=== PATIENT | male | born 1985 | race Caucasian/White ===

== ENCOUNTER 2017-06-01 09:32 | Emergency (ER) | payer SELFPAY ==
[~2017-06-01] VITALS: Ht 170.2 cm; Wt 46.7 kg
--- NOTE | 2017-06-01 11:15 | ED Upper Extremity ---
General Chief Complaint: General Problems/Pain Stated Complaint: LEFT FINGERS NUMB AFTER MOWING Nursing Triage Note: PT REPORTS L HAND NUMBNESS AFTER MOWING YESTERDAY. Nursing Sepsis Screen: No Definite Risk Source: patient Exam Limitations: no limitations History of Present Illness Time seen by provider: 11:12 Initial Comments To ER with reports of numbness and tingling. He states that yesterday his entire left side went numb while he was mowing the yard. This lasted for 5 or 10 minutes before completely resolving except for the left hand. Today the left hand is still tingly and numb. Onset: yesterday Severity: moderate Pain/Injury Location: left hand, left thumb, left 2nd finger, left 3rd finger, left 4th finger Method of Injury: unknown Constitutional: see HPI EENTM: see HPI Respiratory: no symptoms reported Cardiovascular: no symptoms reported Genitourinary: no symptoms reported Musculoskeletal: see HPI Skin: no symptoms reported Psychiatric/Neurological: No Symptoms Reported Past Buhbjco-Npplwm-Lszddd Hx Patient Social History Alcohol Use: Denies Use Recreational Drug Use: No Smoking Status: Current Everyday Smoker 2nd Hand Smoke Exposure: Yes Recent Foreign Travel: No Contact w/Someone Who Travel: No Recent Infectious Disease Expo: No Recent Hopitalizations: No Seasonal Allergies Seasonal Allergies: No Physical Exam Vital Signs Vital Sign - Last 12Hours 06/01/17 09:59 Temp 97.2 Pulse 73 Resp 16 B/P (MAP) 111/83 Pulse Ox 98 O2 Delivery Room Air Capillary Refill : Less Than 3 Seconds General Appearance: WD/WN, no apparent distress HEENT: PERRL/EOMI, normal ENT inspection Neck: non-tender, full range of motion Respiratory: no respiratory distress, no accessory muscle use Gastrointestinal: normal bowel sounds, non tender, soft Shoulder: normal inspection, non-tender Elbow/Forearm: normal inspection, non-tender Wrist: Yes normal inspection, Yes non-tender Hand: Left (he reports a tingly sensation to the left hand that affects the thumb pointer middle finger, the radial side of the ring finger but does not affect the ulnar side of the ring finger or the pinky finger. This begins at the wrist and extends distally.) Neurologic/Psychiatric: alert, normal mood/affect, oriented x 3 Skin: normal color, warm/dry Progress/Results/Core Measures Results/Orders Vital Signs/I&O Vital Sign - Last 12Hours 06/01/17 09:59 Temp 97.2 Pulse 73 Resp 16 B/P (MAP) 111/83 Pulse Ox 98 O2 Delivery Room Air Blood Pressure Mean: 92 Departure Impression Impression: Primary Impression: Carpal tunnel syndrome of left wrist Disposition: HOME, SELF-CARE Condition: Stable Departure-Patient Inst. Decision time for Depature: 11:14 Referrals: SALVADOR HAAS MD, MICHAEL R CFNP (PCP) Primary Care Physician ZEESHAN HYDE MD, ROBERT F DO ZAFUTA, MICHAEL P MD Patient Instructions: Carpal Tunnel Exercises, Carpal Tunnel Syndrome Add. Discharge Instructions: 1. Wear the splint to your hand to keep the wrist straight for the next 1-2 weeks. If the tingling and numbness sensation does not improve or gets worse follow-up with one of the orthopedic surgeons listed All discharge instructions reviewed with patient and/or family. Voiced understanding. ADDIS LINDSEY APRN Jun 01, 2017 11:15
[2017-06-01 11:19] VITALS: BP 111/83
--- OUTSIDE RECORDS SUMMARY | 2017-06-02 10:57 | XMS REPORT ---
Author Author ROSSI HOLMAN e[employer] Address Unknown Phone Unavailable Care Team Providers Care Nutritional Yeast Supervisor Name Role Phone ROSSI HOLMAN CP Unavailable Allergies, Adverse Reactions, Alerts Substance Reaction Event Type N.K.D.A. Info Not Available Non Drug Allergy Problems Problem Type Condition Code Onset Dates Condition Status Problem Anxiety state, unspecified 300.00 Active Problem Migraine, unspecified without mention of intractable migraine without mention of status migrainosus 346.90 Active Problem Anxiety state F41.1 Active Problem Contact with or exposure to venereal diseases V01.6 Active Assessment Acute frontal sinusitis, recurrence not specified J01.10 Active Medications Medication Code System Code Instructions Start Date End Date Status Dosage Paxil [facility] [address]-82 20 MG Orally Once a day Nov 26, 2014 1 tablet Keflex [facility] [address]-95 500 MG Orally 3 times a day January 28, 2016 February 07, 2016 1 capsule Procedures Procedure Coding System Code Date STREP A ASSAY W/OPTIC CPT-4 95440 January 28, 2016 Office Visit, Est Pt., Level 3 CPT-4 82293 January 28, 2016 Vital Signs Date/Time: January 28, 2016 Temperature 97.7 F Weight 102.4 lbs Height 67 in BMI 16.04 Index Blood Pressure Diastolic 70 mmHg Blood Pressure Systolic 104 mmHg Cardiac Monitoring Heart Rate 88 bpm Results Name Result Date Reference Range Unit Abnormality Flag STREP A (IN HOUSE) ----STREP A neg [id number] ----Control + [id number] ----Lot # [id number] ----Exp date [id number] Summary Purpose eClinicalWorks Submission
--- OUTSIDE RECORDS SUMMARY | 2017-06-02 10:57 | XMS REPORT ---
Author Author FRANCISCO J BARON Organization [employer] Address Unknown Phone Unavailable Care Team Providers Care Literacy Tutor Name Role Phone FRANCISCO J BARON CP Unavailable Allergies, Adverse Reactions, Alerts Substance Reaction Event Type N.K.D.A. Info Not Available Non Drug Allergy Problems Problem Type Condition Code Onset Dates Condition Status Problem Anxiety state, unspecified 300.00 Active Problem Migraine, unspecified without mention of intractable migraine without mention of status migrainosus 346.90 Active Problem Anxiety state F41.1 Active Problem Contact with or exposure to venereal diseases V01.6 Active Assessment Anxiety state F41.1 Active Medications Medication Code System Code Instructions Start Date End Date Status Dosage Paxil [facility] [address]-49 20 MG Orally Once a day Nov 26, 2014 1 tablet Procedures Procedure Coding System Code Date Office Visit, Est Pt., Level 3 CPT-4 87002 Oct 06, 2015 Vital Signs Date/Time: Oct 06, 2015 Temperature 96.8 F Weight 109.4 lbs Height 67 in BMI 17.13 Index Blood Pressure Diastolic 64 mmHg Blood Pressure Systolic 110 mmHg Cardiac Monitoring Heart Rate 74 bpm Results No Known Results Summary Purpose eClinicalWorks Submission
--- OUTSIDE RECORDS SUMMARY | 2017-06-02 10:57 | XMS REPORT ---
Author Author FRANCISCO J BARON Organization [employer] Address Unknown Phone Unavailable Care Team Providers Care Probe Operator Name Role Phone FRANCISCO J BARON CP [...] Start Date End Date Status Dosage Paxil [facility] [address]-70 20 mg Orally Once a day, NEEDS APPT BEFORE ANY FURTHER REFILLS Nov 26, 2014 1 tablet Procedures Procedure Coding System Code Date Office Visit, Est Pt., Level 3 CPT-4 68501 May 24, 2016 Vital Signs Date/Time: May 24, 2016 Cardiac Monitoring Heart Rate 80 bpm Weight 103.1 lbs Height 67 in BMI 16.15 Index Blood Pressure Diastolic 70 mmHg Blood Pressure Systolic 110 mmHg Results No Known Results Summary Purpose eClinicalWorks Submission
--- OUTSIDE RECORDS SUMMARY | 2017-06-02 10:57 | XMS REPORT ---
Author Author FRANCISCO J BARON Organization [employer] Address Unknown Phone Unavailable Care Team Providers Care Water Pollution Scientist Name Role Phone FRANCISCO J BARON CP Unavailable Allergies, Adverse Reactions, Alerts Substance Reaction Event Type N.K.D.A. Info Not Available Non Drug Allergy Problems Problem Type Condition ICD-9 Code Onset Dates Condition Status Problem Migraine, unspecified without mention of intractable migraine without mention of status migrainosus 346.90 Active Problem Contact with or exposure to venereal diseases V01.6 Active Problem Anxiety state, unspecified 300.00 Active Assessment Anxiety state, unspecified 300.00 Active Medications Medication Code System Code Instructions Start Date End Date Status Dosage Paxil [facility] [address]-63 20 mg Orally Once a day Nov 26, 2014 1 tablet Procedures Procedure Coding System Code Date Office Visit, Est Pt., Level 3 CPT-4 32493 Jun 25, 2015 Vital Signs Date/Time: Jun 25, 2015 Temperature 98.6 F Weight 100.2 lbs Height 67 in BMI 15.69 Index Blood Pressure Diastolic 70 mmHg Blood Pressure Systolic 104 mmHg Cardiac Monitoring Heart Rate 76 bpm Results No Known Results Summary Purpose eClinicalWorks Submission
--- OUTSIDE RECORDS SUMMARY | 2017-06-02 10:57 | XMS REPORT ---
Author Author FRANCISCO J BARON Organization [employer] Address Unknown Phone Unavailable Care Team Providers Care Firearms Inspector Name Role Phone FRANCISCO J BARON CP Unavailable Allergies No Known Allergies Problems Problem Type Condition Code Onset Dates Condition Status Problem Anxiety state, unspecified 300.00 Active Problem Migraine, unspecified without mention of intractable migraine without mention of status migrainosus 346.90 Active Problem Anxiety state F41.1 Active Problem Contact with or exposure to venereal diseases V01.6 Active Medications Medication Code System Code Instructions Start Date End Date Status Dosage Paxil [facility] [address]-53 20 mg Orally Once a day, NEEDS APPT BEFORE ANY FURTHER REFILLS Nov 26, 2014 1 tablet Results No Known Results Summary Purpose eClinicalWorks Submission
== END 2017-06-01 11:19 | disposition home or self-care (01) ==
LOC: EDUNIT# 09:32 → ER 09:36
DX: G56.02 Carpal tunnel syndrome, left upper limb (principal); F17.200 Nicotine dependence, unspecified, uncomplicated
CPT/HCPCS: 99281

== ENCOUNTER → 2020-07-15 | Outpatient (CLI) | payer OTHER ==
--- NOTE | 2020-07-15 10:09 | Diagnostic Imaging Report ---
EXAMINATION: Lumbar spine at 9:16 AM. INDICATION: Scoliosis, back pain. TECHNIQUE/COMPARISON: Three views were obtained. There are no prior studies available for comparison. FINDINGS: The lateral view shows the vertebral body heights and alignment to be within normal limits. The intervertebral spaces are well maintained. There is no fracture or acute bony abnormality identified. There is no sign of a paraspinal mass. There is mild symmetrical sclerosis of the sacroiliac joints. IMPRESSION: 1. There is no evidence for an acute bony abnormality of the lumbar spine. 2. There is no sign of scoliosis. Dictated by: Dictated on workstation # [id number]
== END ==
LOC: RAD 08:58
PROVIDERS: ATTEND Surgery
DX: Z02.71 Encounter for disability determination (principal); M54.5 Low back pain
CPT/HCPCS: 72100